=== PATIENT | male | born 2000 | race American Indian/Alaskan Native ===

== ENCOUNTER 2020-10-12 16:16 | Emergency (ER) | payer OTHER ==
[2020-10-12 16:36] VITALS: BP 153/99
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
== END 2020-10-12 18:08 | disposition home or self-care (01) ==
LOC: ED 16:16
DX: S09.90XA Unspecified injury of head, initial encounter (principal); V49.59XA Passenger injured in collision with other motor vehicles in traffic accident, initial encounter; Y93.89 Activity, other specified; Y92.410 Unspecified street and highway as the place of occurrence of the external cause; Y99.8 Other external cause status
CPT/HCPCS: 99281